=== PATIENT | female | born 1940 | race Two or more races ===

== ENCOUNTER 2024-07-29 13:51 | Inpatient (IN) | payer OTHER ==
[~2024-07-29] VITALS: Ht 157.5 cm; Wt 129.7 kg
[2024-07-29] MEDS ORDERED: LOSARTAN-HCTZ1 EACH PO (13:56)
[2024-07-29] MEDS ORDERED: QUETIAPINE FUM400 M1 PO (13:57)
[2024-07-29] MEDS ORDERED: CHILDREN'S ASPI81 MG PO (13:57)
[2024-07-29] MEDS ORDERED: TOPROL XL25 M1 PO (13:57)
--- NOTE | 2024-07-29 13:57 | NUR ---
PTE ALERTA Y DESORIENTADA EN AMBULANCIA. PARAMEDICOS REFIEREN TRAER PTE DE HOME YA QUE EN EL ADRIA SUFRIO CAIDA Y GOLPEARSE CADERA IZQUIERDA. ESTOS INDICAN PTE SER DE DR GARCIA
--- NOTE | 2024-07-29 14:53 | NUR ---
SE CANALIZA VENA Y SE VANESSA MUESTRAS DE LAB. PENDIENTE PLACA DE CADERA IZQUIERDA
[2024-07-29 15:19] LABS: INR < 0.93; PARTIAL THROMBOPLASTIN TIME 26.1 SECONDS (22.0-34.0); PROTHROMBIN TIME 10.2 SECONDS (9.0-11.5)
[2024-07-29 15:30] LABS: COVID-19 AG POSITIVE (NEGATIVE)
[2024-07-29 15:39] LABS: HEMATOCRIT 26.4 % (36.0-45.00); HEMOGLOBIN 9.1 g/dL (12.0-15.00); MEAN CELL VOLUME 93.9 fL (80.00-100.00); MEAN CORPUSCULAR HEMOGLOBIN 32.4 pg (27.00-32.0); MEAN CORPUSCULAR HGB CONC 34.5 g/dl (32.0-36.0); PLATELET COUNT 210 K/uL (150-450); RED BLOOD COUNT 2.81 M/uL (4.00-6.00); RED CELL DISTRIBUTION WIDTH 13.2 % (11.5-14.5)
--- NOTE | 2024-07-29 15:43 | NUR ---
SE INSERTA SUAREZ BAJO MEDIDAS ESTERIL SE OBSERVA RETORNO DE ORINA SIN HEMAMTURIA. SE EMMANUEL U/A
[2024-07-29 15:51] LABS: CALCIUM 8.6 mg/dL (8.5-10.1); CREATININE SERUM 0.8 mg/dL (0.55-1.02); GFR 68.5; POTASSIUM 3.85 mEq/L (3.5-5.1)
[2024-07-29 16:42] LABS: PH,URINE 5.5 (5.0-8.0); URINE APPEARANCE Cloudy; URINE BILIRRUBIN Negative (NEGATIVE); URINE BLOOD Negative; URINE COLOR Yellow; URINE GLUCOSE Negative (NEGATIVE); URINE KETONE Negative (NEGATIVE); URINE LEUKOCYTE Small; URINE NITRATE Negative; URINE PROTEIN Trace (NEGATIVE); URINE UROBILINOGEN 0.2 E.U./dl
[2024-07-29 16:46] LABS: URINE BACTERIA 9688.8 uL (0.0-1933); URINE CAST 1.61 uL (0.0-1.40); URINE EPITHELIAL CELLS 45.5 uL (0.0-38.8); URINE RBC 6.4 uL (0.0-20.8)
[2024-07-29] MEDS ORDERED: FUROsemide 20 MG/2 ML VIAL IV SCH (19:15)
[2024-07-29] MEDS ORDERED: ACETAMINOPHEN 500 MG GEL..CAP PO PRN (19:15)
[2024-07-29] MEDS ORDERED: 0.9 % SODIUM CHLORIDE 1,000 ML IV SCH (19:15)
[2024-07-30] VITALS: BP 133/64; O2SAT 96
[2024-07-30 08:55] VITALS: BP 143/62
[2024-07-30] MEDS ORDERED: FAMOTIDINE/PF 20 MG in 0.9 % SODIUM CHLORIDE 8 ML IV PUSH SCH (09:00)
[2024-07-30] MEDS ORDERED: IRON FUM,PS/FOLIC/BCOMP,C NO.9 1 CAP CAPSULE PO SCH (09:00)
[2024-07-30] MEDS ORDERED: CEFTRIAXONE SODIUM 2,000 MG in 0.9 % SODIUM CHLORIDE 100 ML IV SCH (09:00)
[2024-07-30] MEDS ORDERED: ENOXAPARIN SODIUM 40 MG/0.4 ML SYRINGE SUBCUTANEO SCH (09:00)
[2024-07-30] MEDS ORDERED: LOSARTAN/HYDROCHLOROTHIAZIDE 1 UDTAB TABLET PO SCH (09:00)
[2024-07-30] MEDS ORDERED: 0.9 % SODIUM CHLORIDE 1,000 ML IV SCH (09:00)
[2024-07-30] MEDS ORDERED: METOPROLOL SUCCINATE 25 MG TAB.SR.24H PO SCH (09:00)
[2024-07-30] MEDS ORDERED: LACTOBACILLUS ACIDOPHILUS 1 CAP CAP PO SCH (17:00)
[2024-07-30 17:47] VITALS: BP 156/74; O2SAT 96
[2024-07-31 02:18] VITALS: BP 149/67; O2SAT 95
[2024-07-31 07:55] LABS: C-REACTIVE PROTEIN 11.4 MG/DL (0.00-0.29); FERRITIN 392.8 NG/ML (8-252)
[2024-07-31 07:56] LABS: HEMATOCRIT 28.4 % (36.0-45.00); HEMOGLOBIN 9.9 g/dL (12.0-15.00); MEAN CELL VOLUME 88.3 fL (80.00-100.00); MEAN CORPUSCULAR HEMOGLOBIN 30.8 pg (27.00-32.0); MEAN CORPUSCULAR HGB CONC 34.8 g/dl (32.0-36.0); PLATELET COUNT 191 K/uL (150-450); RED BLOOD COUNT 3.22 M/uL (4.00-6.00); RED CELL DISTRIBUTION WIDTH 15.7 % (11.5-14.5)
[2024-07-31 18:08] VITALS: BP 137/66; O2SAT 100
[2024-08-01 03:50] VITALS: BP 134/55
[2024-08-01 09:10] VITALS: BP 171/67; O2SAT 98
[2024-08-01 10:53] LABS: HEMATOCRIT 34.2 % (36.0-45.00); HEMOGLOBIN 11.3 g/dL (12.0-15.00); MEAN CELL VOLUME 90.5 fL (80.00-100.00); MEAN CORPUSCULAR HEMOGLOBIN 29.9 pg (27.00-32.0); MEAN CORPUSCULAR HGB CONC 33.1 g/dl (32.0-36.0); PLATELET COUNT 201 K/uL (150-450); RED BLOOD COUNT 3.78 M/uL (4.00-6.00); RED CELL DISTRIBUTION WIDTH 15.9 % (11.5-14.5)
[2024-08-01] MEDS ORDERED: CHLORHEXIDINE GLUCONATE 120 ML BOTTLE TOP SCH (17:00)
[2024-08-01 17:54] VITALS: BP 121/68; O2SAT 100
[2024-08-02 03:43] VITALS: BP 143/71; O2SAT 97
[2024-08-02 06:30] LABS: HEMOGLOBIN 11.1 g/dL (12.0-15.00); MEAN CELL VOLUME 89.8 fL (80.00-100.00); MEAN CORPUSCULAR HEMOGLOBIN 30.1 pg (27.00-32.0); MEAN CORPUSCULAR HGB CONC 33.5 g/dl (32.0-36.0); PLATELET COUNT 234 K/uL (150-450); RED BLOOD COUNT 3.67 M/uL (4.00-6.00); RED CELL DISTRIBUTION WIDTH 15.5 % (11.5-14.5)
[2024-08-02 07:01] LABS: CREATININE SERUM 0.57 mg/dL (0.55-1.02); GFR 101.3; POTASSIUM 4.11 mEq/L (3.5-5.1)
[2024-08-02] MEDS ORDERED: SODIUM CL 0.9% 100 ML IV.SOLN IV ONE (08:13)
[2024-08-02 10:11] VITALS: BP 151/66; O2SAT 99
[2024-08-02] MEDS ORDERED: CEFAZOLIN SODIUM 1,000 MG VIAL IV NR (13:00)
[2024-08-02] MEDS ORDERED: TRANEXAMIC ACID 100MG/1ML (1000MG) AMPUL IV NR ×2 (13:00)
[2024-08-02] MEDS ORDERED: TRAMADOL HCL 50 MG TABLET PO PRN (18:30)
[2024-08-02] MEDS ORDERED: SODIUM CHLORIDE 0.45 % 1,000 ML IV SCH (18:30)
[2024-08-02] MEDS ORDERED: PANTOPRAZOLE SODIUM 40 MG TABLET.DR PO SCH (18:34)
[2024-08-02 22:14] VITALS: BP 133/76
[2024-08-03 01:33] VITALS: BP 143/73; O2SAT 98
[2024-08-03 08:57] LABS: HEMATOCRIT 30.5 % (36.0-45.00); HEMOGLOBIN 10.2 g/dL (12.0-15.00); MEAN CELL VOLUME 90.3 fL (80.00-100.00); MEAN CORPUSCULAR HEMOGLOBIN 30.1 pg (27.00-32.0); MEAN CORPUSCULAR HGB CONC 33.3 g/dl (32.0-36.0); PLATELET COUNT 315 K/uL (150-450); RED BLOOD COUNT 3.38 M/uL (4.00-6.00); RED CELL DISTRIBUTION WIDTH 15.3 % (11.5-14.5)
[2024-08-03] MEDS ORDERED: SODIUM CL 0.9% 100 ML IV.SOLN IV ONE (09:10)
[2024-08-03 09:16] VITALS: BP 136/60; O2SAT 100
[2024-08-03 09:30] LABS: CALCIUM 8.1 mg/dL (8.5-10.1); CREATININE SERUM 0.46 mg/dL (0.55-1.02); GFR 129.73; POTASSIUM 4.09 mEq/L (3.5-5.1)
[2024-08-03 16:57] VITALS: BP 104/48; O2SAT 94
[2024-08-03] MEDS ORDERED: FAMOtidine 20 MG TABLET PO SCH (21:00)
[2024-08-04 02:53] VITALS: BP 135/70; O2SAT 99
[2024-08-04 06:55] LABS: HEMATOCRIT 28.4 % (36.0-45.00); MEAN CELL VOLUME 88.8 fL (80.00-100.00); MEAN CORPUSCULAR HGB CONC 33.7 g/dl (32.0-36.0); PLATELET COUNT 366 K/uL (150-450); RED CELL DISTRIBUTION WIDTH 15.4 % (11.5-14.5)
[2024-08-04 06:57] LABS: HEMOGLOBIN 9.6 g/dL (12.0-15.00)
[2024-08-04] MEDS ORDERED: RIVAROXABAN 10 MG TAB PO SCH (09:00)
[2024-08-04 10:01] VITALS: BP 158/68
[2024-08-04 18:01] VITALS: BP 127/60; O2SAT 98
[2024-08-05] MEDS ORDERED: ELIQUIS2.5 MG PO (15:53)
== END 2024-08-04 20:43 | disposition home or self-care (01) | DRG 480 ==
LOC: ER 13:51 → MEDJ 22:08 → MEDI 22:08 → MEDJ 07-30 13:35
PROVIDERS: Emergency Medicine; Internal Medicine; Internal Medicine Infectious Disease; Orthopaedic Surgery; ADMIT Student in an Organized Health Care Education/Training Program; ATTEND Student in an Organized Health Care Education/Training Program
PROC: BW28ZZZ Computerized Tomography (CT Scan) of Head (ICD-10-PCS; 2024-07-29)
PROC: BW2FZZZ Computerized Tomography (CT Scan) of Neck (ICD-10-PCS; 2024-07-29)
PROC: 8E0ZXY6 Isolation (ICD-10-PCS; 2024-07-30)
PROC: 30233N1 Transfusion of Nonautologous Red Blood Cells into Peripheral Vein, Percutaneous Approach (ICD-10-PCS; 2024-07-30)
PROC: 0MBB0ZZ Excision of Left Upper Extremity Bursa and Ligament, Open Approach (ICD-10-PCS; 2024-08-02)
PROC: 0QS706Z Reposition Left Upper Femur with Intramedullary Internal Fixation Device, Open Approach (ICD-10-PCS; principal; 2024-08-02 14:30)
DX: S72.142A Displaced intertrochanteric fracture of left femur, initial encounter for closed fracture (principal); U07.1 COVID-19; N39.0 Urinary tract infection, site not specified; W13.3XXA Fall through floor, initial encounter; Y93.9 Activity, unspecified; Y92.9 Unspecified place or not applicable; M70.62 Trochanteric bursitis, left hip; I10 Essential (primary) hypertension; G30.9 Alzheimer's disease, unspecified; F02.80 Dementia in other diseases classified elsewhere, unspecified severity, without behavioral disturbance, psychotic disturbance, mood disturbance, and anxiety; D64.9 Anemia, unspecified

== ENCOUNTER 2024-09-24 19:09 | Inpatient (IN) | payer OTHER ==
[~2024-09-24] VITALS: Ht 160 cm; Wt 45.4 kg
[~2024-09-24 19:09] MED LIST: CHILDREN'S ASPI81 MG PO; ELIQUIS2.5 MG PO; LOSARTAN-HCTZ1 EACH PO; QUETIAPINE FUM400 M1 PO; TOPROL XL25 M1 PO
--- NOTE | 2024-09-24 19:13 | NUR ---
SE RECIBE PTE ALERTA EN AMBULANCIA CON H/L [place]. PERSONAL PARAMEDICO REFIERE TRAER A PTE POR ULCERA SACRAL. PERSONAL PARAMEDICO REFIERE QUE PTE FUE OPERADA POR DR. MCKEON RECIENTEMENTE. SE MIDEN S/V A PTE Y SE UBICA.
[2024-09-24] MEDS ORDERED: 0.9 % SODIUM CHLORIDE 1,000 ML IV SCH (19:45)
[2024-09-24] MEDS ORDERED: PIPERACILLIN/TAZOBACTAM SODIUM 2.25 GM VIAL IV ONE (19:45)
[2024-09-24] MEDS ORDERED: PIPERACILLIN/TAZOBACTAM SODIUM 3.375 GM VIAL IV ONE (20:03)
--- NOTE | 2024-09-24 20:45 | NUR ---
MANJULA EDUCA A CUIDADORA SOBRE [place] MEDICO, SE VANESSA MUESTRAS DE LABORATORIO UTILIZANDO MEDIDAS ASEPTICAS. SE COLOCA H/L AMIRA DE EDEMA. SE NOTIFICAN RX PENDIENTE. SE ADMINISTRAN MEDCIAMENTO AMAN ORDEN MEDICA.
[2024-09-24 20:57] LABS: BASO % 0.4 % (0.1-1.2); EOS % 0.9 % (0.7-7.0); HEMATOCRIT 28.6 % (34.1-44.9); HEMOGLOBIN 9.5 g/dL (11.2-15.7); LYMPH # 1.27 (1.18-3.74); LYMPH % 11.1 % (19.3-53.1); MEAN CORPUSCULAR HEMOGLOBIN 29.3 pg (25.6-32.2); MONO # 1.39 (0.24-0.82); NEUT # 8.43 (1.56-6.13); NEUT % 73.9 % (34.0-71.1); RED BLOOD COUNT 3.24 M/uL (3.93-5.22); RED CELL DISTRIBUTION WIDTH 14.4 % (11.6-14.4)
[2024-09-24 21:17] LABS: ERYTHROCYTE SEDIMENTATION RATE 58 mm/hr (0-30); MONO % 12.2 % (4.7-12.5); PLATELET COUNT 561 K/uL (163-369)
[2024-09-24 21:19] LABS: PARTIAL THROMBOPLASTIN TIME 20.5 SECONDS (22.0-34.0); PROTHROMBIN TIME 10.9 SECONDS (9.0-11.5)
[2024-09-24 21:26] LABS: PH,URINE 6.5 (5.0-8.0); URINE APPEARANCE Clear; URINE BILIRRUBIN Negative (NEGATIVE); URINE BLOOD NHT; URINE COLOR Yellow; URINE GLUCOSE Negative (NEGATIVE); URINE KETONE Negative (NEGATIVE); URINE LEUKOCYTE Small; URINE NITRATE Negative; URINE PROTEIN Negative (NEGATIVE)
[2024-09-24 21:28] LABS: COVID-19 AG NEGATIVE (NEGATIVE)
[2024-09-24 21:30] LABS: URINE EPITHELIAL CELLS 13.2 uL (0.0-38.8); URINE RBC 26.2 uL (0.0-20.8); URINE WBC 65.2 uL (0.0-23.2)
[2024-09-24 21:31] LABS: URINE BACTERIA > 9821.5 uL (0.0-1933); URINE CAST 0.44 uL (0.0-1.40)
[2024-09-24 21:33] LABS: ALBUMIN 2.2 gm/dL (3.4-5.0); BILIRUBIN TOTAL 0.12 mg/dL (0.3-1.2); CALCIUM 8.4 mg/dL (8.5-10.1); CREATININE SERUM 0.64 mg/dL (0.55-1.02); GFR 88.62; GLOBULINA 4.4 G/DL (2.4-3.5); POTASSIUM 4.64 mEq/L (3.5-5.1); TOTAL PROTEIN 6.6 gm/dL (6.4-8.2)
[2024-09-24 21:34] LABS: C-REACTIVE PROTEIN 0.9 MG/DL (0.00-0.29)
[2024-09-25] MEDS ORDERED: MEROPENEM 500 MG/VIAL VIAL IV SCH (01:00)
[2024-09-25] MEDS ORDERED: PIPERACILLIN/TAZOBACTAM SODIUM 3.375 GM in 0.9 % SODIUM CHLORIDE 100 ML IV SCH (06:00)
[2024-09-25 06:46] VITALS: BP 119/68; O2SAT 95
[2024-09-25] MEDS ORDERED: ASPIRIN 81 MG TABLET.EC PO SCH (09:00)
[2024-09-25] MEDS ORDERED: LOSARTAN/HYDROCHLOROTHIAZIDE 1 UDTAB TABLET PO SCH (09:00)
[2024-09-25] MEDS ORDERED: METOPROLOL SUCCINATE 25 MG TAB.SR.24H PO SCH (09:00)
[2024-09-25 10:13] VITALS: BP 129/52; O2SAT 97
[2024-09-25] MEDS ORDERED: QUETIAPINE FUMARATE 25 MG TABLET PO SCH (21:00)
[2024-09-25] MEDS ORDERED: PANTOPRAZOLE SODIUM 40 MG/VIAL VIAL IV SCH (21:00)
[2024-09-26 01:23] VITALS: BP 156/71; O2SAT 95
[2024-09-26 09:59] VITALS: BP 148/67; O2SAT 97
[2024-09-26 18:19] VITALS: BP 116/51; O2SAT 96
[2024-09-27 00:28] VITALS: BP 106/55; O2SAT 92
[2024-09-27 08:34] VITALS: BP 118/50
[2024-09-27] MEDS ORDERED: MEROPENEM 500 MG/VIAL VIAL IV NR (11:00)
[2024-09-27] MEDS ORDERED: MEROPENEM 500 MG/VIAL VIAL IV SCH (17:00)
[2024-09-27 18:25] VITALS: BP 110/61
[2024-09-27 21:46] LABS: BASO % 0.4 % (0.1-1.2); EOS # 0.05 (0.04-0.54); EOS % 0.4 % (0.7-7.0); HEMATOCRIT 27.3 % (34.1-44.9); HEMOGLOBIN 9.3 g/dL (11.2-15.7); LYMPH # 0.99 (1.18-3.74); LYMPH % 7.9 % (19.3-53.1); MONO # 1.32 (0.24-0.82); MONO % 10.5 % (4.7-12.5); NEUT # 9.76 (1.56-6.13); NEUT % 77.5 % (34.0-71.1); PLATELET COUNT 457 K/uL (163-369); RED CELL DISTRIBUTION WIDTH 14.6 % (11.6-14.4)
[2024-09-27 22:07] LABS: CALCIUM 8.3 mg/dL (8.5-10.1); CREATININE SERUM 0.36 mg/dL (0.55-1.02); GFR 172.15; POTASSIUM 3.66 mEq/L (3.5-5.1)
[2024-09-28 00:45] VITALS: BP 121/54; O2SAT 99
[2024-09-28 08:40] VITALS: BP 117/63; O2SAT 97
[2024-09-28] MEDS ORDERED: LACTOBACILLUS ACIDOPHILUS 1 CAP CAP PO SCH (17:00)
[2024-09-28] MEDS ORDERED: DEXTROSE 5% IV SCH (17:00)
[2024-09-28] MEDS ORDERED: WATER IV SCH (17:00)
[2024-09-28] MEDS ORDERED: AMPICILLIN SODIUM IV SCH (17:00)
[2024-09-28 17:35] VITALS: BP 98/51
[2024-09-29 00:27] VITALS: BP 91/49; O2SAT 97
[2024-09-29 08:25] VITALS: BP 87/40; O2SAT 95
[2024-09-29] MEDS ORDERED: LANSOPRAZOLE 30 MG CAPSULE NGT SCH (09:00)
[2024-09-29 10:00] VITALS: BP 107/53
[2024-09-29] MEDS ORDERED: CHLORHEXIDINE GLUCONATE 120 ML BOTTLE TOP SCH (17:00)
[2024-09-29 17:22] VITALS: BP 100/46
[2024-09-29 18:42] LABS: PH,URINE 6.5 (5.0-8.0); URINE APPEARANCE Clear; URINE BILIRRUBIN Negative (NEGATIVE); URINE BLOOD Negative; URINE COLOR Yellow; URINE GLUCOSE Negative (NEGATIVE); URINE KETONE Negative (NEGATIVE); URINE LEUKOCYTE Trace; URINE NITRATE Negative; URINE PROTEIN Trace (NEGATIVE)
[2024-09-29 18:43] LABS: URINE BACTERIA 124.8 uL (0.0-1933); URINE EPITHELIAL CELLS 9.6 uL (0.0-38.8); URINE RBC 15.3 uL (0.0-20.8)
[2024-09-29 18:44] LABS: URINE CAST 1.17 uL (0.0-1.40)
[2024-09-30 01:42] VITALS: BP 93/51
[2024-09-30 09:17] VITALS: BP 123/60; O2SAT 98
[2024-09-30 09:52] LABS: BASO % 0.6 % (0.1-1.2); EOS # 0.12 (0.04-0.54); EOS % 1.7 % (0.7-7.0); LYMPH # 1.11 (1.18-3.74); LYMPH % 15.6 % (19.3-53.1); MEAN CORPUSCULAR HEMOGLOBIN 29.7 pg (25.6-32.2); MONO # 0.96 (0.24-0.82); NEUT # 4.19 (1.56-6.13); NEUT % 58.9 % (34.0-71.1); PLATELET COUNT 364 K/uL (163-369); RED BLOOD COUNT 2.86 M/uL (3.93-5.22); RED CELL DISTRIBUTION WIDTH 14.6 % (11.6-14.4)
[2024-09-30 11:05] LABS: HEMATOCRIT 25.4 % (34.1-44.9); HEMOGLOBIN 8.5 g/dL (11.2-15.7); MONO % 13.5 % (4.7-12.5)
[2024-09-30 11:17] LABS: ALBUMIN 1.7 gm/dL (3.4-5.0); BILIRUBIN TOTAL 0.15 mg/dL (0.3-1.2); CALCIUM 7.7 mg/dL (8.5-10.1); GFR 239.92; GLOBULINA 3.6 G/DL (2.4-3.5); POTASSIUM 4.83 mEq/L (3.5-5.1); TOTAL PROTEIN 5.3 gm/dL (6.4-8.2)
[2024-09-30 11:18] LABS: CREATININE SERUM 0.27 mg/dL (0.55-1.02)
[2024-09-30 17:04] VITALS: BP 133/77; O2SAT 97
[2024-10-01 02:59] VITALS: BP 86/51
[2024-10-01 09:49] VITALS: BP 109/50; O2SAT 99
[2024-10-01 18:35] VITALS: BP 125/52
[2024-10-02 02:19] VITALS: BP 118/60; O2SAT 96
[2024-10-02 09:21] VITALS: BP 125/56; O2SAT 98
[2024-10-02 18:29] VITALS: BP 150/69
[2024-10-03 02:42] VITALS: BP 144/69; O2SAT 95
[2024-10-03 10:05] VITALS: BP 137/73
[2024-10-03 17:38] VITALS: BP 142/63
[2024-10-04 01:50] VITALS: BP 138/76; O2SAT 94
[2024-10-04 08:24] VITALS: BP 146/70; O2SAT 97
[2024-10-04 15:28] LABS: COVID-19 AG NEGATIVE (NEGATIVE)
[2024-10-04 16:19] LABS: INFLUENZA A AG POSITIVE (NEGATIVE); INFLUENZA B AG NEGATIVE (NEGATIVE)
[2024-10-04] MEDS ORDERED: OSELTAMIVIR PHOSPHATE 75 MG CAPSULE PO SCH (17:00)
[2024-10-04 17:03] VITALS: BP 148/65
[2024-10-04 19:12] LABS: BASO % 0.9 % (0.1-1.2); HEMATOCRIT 27.8 % (34.1-44.9); HEMOGLOBIN 9.4 g/dL (11.2-15.7); LYMPH # 0.87 (1.18-3.74); MEAN CORPUSCULAR HEMOGLOBIN 28.6 pg (25.6-32.2); MONO # 1.11 (0.24-0.82); NEUT # 2.04 (1.56-6.13); NEUT % 44.5 % (34.0-71.1); PLATELET COUNT 286 K/uL (163-369); RED BLOOD COUNT 3.29 M/uL (3.93-5.22)
[2024-10-04 19:33] LABS: ALBUMIN 1.8 gm/dL (3.4-5.0); BILIRUBIN TOTAL 0.23 mg/dL (0.3-1.2); CALCIUM 7.6 mg/dL (8.5-10.1); GFR 230.07; GLOBULINA 3.6 G/DL (2.4-3.5); POTASSIUM 4.07 mEq/L (3.5-5.1); TOTAL PROTEIN 5.4 gm/dL (6.4-8.2)
[2024-10-04 19:35] LABS: CREATININE SERUM 0.28 mg/dL (0.55-1.02)
[2024-10-04 20:23] LABS: MONO % 24.2 % (4.7-12.5)
[2024-10-05 01:12] VITALS: BP 105/61; O2SAT 98
[2024-10-05 08:20] VITALS: BP 117/66; O2SAT 95
[2024-10-05 17:48] VITALS: BP 116/56; O2SAT 96
[2024-10-06 02:59] VITALS: BP 100/51; O2SAT 91
[2024-10-06 08:15] LABS: BASO % 0.2 % (0.1-1.2); EOS # 0.01 (0.04-0.54); EOS % 0.2 % (0.7-7.0); LYMPH % 28.6 % (19.3-53.1); MONO # 0.86 (0.24-0.82); NEUT # 1.73 (1.56-6.13); NEUT % 41.4 % (34.0-71.1); PLATELET COUNT 245 K/uL (163-369); RED BLOOD COUNT 3.03 M/uL (3.93-5.22); RED CELL DISTRIBUTION WIDTH 14.4 % (11.6-14.4)
[2024-10-06 08:42] LABS: CALCIUM 6.9 mg/dL (8.5-10.1); CREATININE SERUM 0.3 mg/dL (0.55-1.02); GFR 212.45; POTASSIUM 4.87 mEq/L (3.5-5.1)
[2024-10-06 08:59] LABS: HEMOGLOBIN 8.8 g/dL (11.2-15.7); MONO % 20.5 % (4.7-12.5)
[2024-10-06 09:27] VITALS: BP 104/60; O2SAT 96
[2024-10-06] MEDS ORDERED: METROnidazole 500 MG TABLET PO SCH (17:00)
[2024-10-06] MEDS ORDERED: CEFTAZIDIME/AVIBACTAM 2.5 GM VIAL IV SCH (17:00)
[2024-10-06 17:22] VITALS: BP 133/74; O2SAT 99
[2024-10-07 02:28] VITALS: BP 105/62; O2SAT 90
[2024-10-07 09:14] VITALS: BP 115/50
[2024-10-07 18:01] VITALS: BP 116/60; O2SAT 97
[2024-10-08 02:59] VITALS: BP 90/50; O2SAT 90
[2024-10-08 06:59] LABS: CALCIUM 6.8 mg/dL (8.5-10.1); CREATININE SERUM 0.3 mg/dL (0.55-1.02); GFR 212.45; POTASSIUM 4.54 mEq/L (3.5-5.1)
[2024-10-08 07:10] LABS: BASO % 0.4 % (0.1-1.2); EOS # 0.01 (0.04-0.54); EOS % 0.2 % (0.7-7.0); LYMPH # 1.36 (1.18-3.74); LYMPH % 24.1 % (19.3-53.1); MEAN CORPUSCULAR HEMOGLOBIN 28.7 pg (25.6-32.2); MONO # 1.17 (0.24-0.82); NEUT # 3.01 (1.56-6.13); NEUT % 53.2 % (34.0-71.1); PLATELET COUNT 215 K/uL (163-369); RED BLOOD COUNT 2.72 M/uL (3.93-5.22); RED CELL DISTRIBUTION WIDTH 14.6 % (11.6-14.4)
[2024-10-08 08:53] LABS: MONO % 20.7 % (4.7-12.5)
[2024-10-08 08:57] LABS: HEMOGLOBIN 7.8 g/dL (11.2-15.7)
[2024-10-08 09:25] VITALS: BP 104/48; O2SAT 95
[2024-10-08 17:29] VITALS: BP 160/66; O2SAT 92
[2024-10-09 02:27] VITALS: BP 124/60; O2SAT 89
[2024-10-09 09:16] VITALS: BP 118/60; O2SAT 96
[2024-10-09 12:09] LABS: BASO % 0.5 % (0.1-1.2); EOS # 0.08 (0.04-0.54); HEMOGLOBIN 11.8 g/dL (11.2-15.7); LYMPH % 17.3 % (19.3-53.1); MEAN CORPUSCULAR HEMOGLOBIN 28.5 pg (25.6-32.2); MONO # 1.49 (0.24-0.82); NEUT # 5.02 (1.56-6.13); NEUT % 62.2 % (34.0-71.1); PLATELET COUNT 246 K/uL (163-369); RED BLOOD COUNT 4.14 M/uL (3.93-5.22); RED CELL DISTRIBUTION WIDTH 15.2 % (11.6-14.4)
[2024-10-09 12:11] LABS: MONO % 18.4 % (4.7-12.5)
[2024-10-09 17:45] VITALS: BP 132/57; O2SAT 91
[2024-10-10 00:45] VITALS: BP 121/61
[2024-10-10] MEDS ORDERED: LEVALBUTEROL HCL 1.25 MG/3 ML SOLUTION IH SCH (09:16)
[2024-10-10] MEDS ORDERED: IPRATROPIUM BROMIDE 0.5 MG/2.5 ML AMPUL.NEB IH SCH (09:17)
[2024-10-10 10:21] VITALS: BP 159/74; O2SAT 86
[2024-10-10 17:58] VITALS: BP 153/66; O2SAT 90
[2024-10-11 00:49] VITALS: BP 124/66; O2SAT 96
[2024-10-11 09:02] VITALS: BP 116/58; O2SAT 96
[2024-10-11 09:02] LABS: BASO % 0.3 % (0.1-1.2); EOS # 0.13 (0.04-0.54); EOS % 1.3 % (0.7-7.0); HEMATOCRIT 29.7 % (34.1-44.9); HEMOGLOBIN 10.1 g/dL (11.2-15.7); LYMPH # 1.01 (1.18-3.74); MEAN CORPUSCULAR HEMOGLOBIN 28.5 pg (25.6-32.2); MONO # 2.38 (0.24-0.82); NEUT # 6.36 (1.56-6.13); NEUT % 63.1 % (34.0-71.1); PLATELET COUNT 404 K/uL (163-369); RED BLOOD COUNT 3.55 M/uL (3.93-5.22); RED CELL DISTRIBUTION WIDTH 15.3 % (11.6-14.4)
[2024-10-11 09:32] LABS: ALBUMIN 1.2 gm/dL (3.4-5.0); BILIRUBIN TOTAL 0.23 mg/dL (0.3-1.2); CALCIUM 7.5 mg/dL (8.5-10.1); GFR 230.07; GLOBULINA 3.8 G/DL (2.4-3.5); POTASSIUM 4.49 mEq/L (3.5-5.1)
[2024-10-11 09:34] LABS: CREATININE SERUM 0.28 mg/dL (0.55-1.02)
[2024-10-11 09:49] LABS: MONO % 23.6 % (4.7-12.5)
[2024-10-11 16:06] VITALS: BP 154/69; O2SAT 97
[2024-10-12 02:40] VITALS: BP 116/65; O2SAT 99
[2024-10-12 05:07] LABS: BASO % 0.6 % (0.1-1.2); EOS # 0.31 (0.04-0.54); EOS % 3.8 % (0.7-7.0); HEMATOCRIT 28.7 % (34.1-44.9); LYMPH # 0.78 (1.18-3.74); LYMPH % 9.5 % (19.3-53.1); MEAN CORPUSCULAR HEMOGLOBIN 28.2 pg (25.6-32.2); MONO # 1.87 (0.24-0.82); NEUT # 5.09 (1.56-6.13); NEUT % 62.1 % (34.0-71.1); PLATELET COUNT 462 K/uL (163-369); RED BLOOD COUNT 3.44 M/uL (3.93-5.22); RED CELL DISTRIBUTION WIDTH 15.3 % (11.6-14.4)
[2024-10-12 05:22] LABS: HEMOGLOBIN 9.7 g/dL (11.2-15.7); MONO % 22.8 % (4.7-12.5)
[2024-10-12 05:35] LABS: ALBUMIN 1.2 gm/dL (3.4-5.0); BILIRUBIN TOTAL 0.29 mg/dL (0.3-1.2); CALCIUM 7.6 mg/dL (8.5-10.1); GFR 359.91; GLOBULINA 3.6 G/DL (2.4-3.5); POTASSIUM 4.43 mEq/L (3.5-5.1); TOTAL PROTEIN 4.8 gm/dL (6.4-8.2)
[2024-10-12 05:46] LABS: CREATININE SERUM 0.19 mg/dL (0.55-1.02)
[2024-10-12 08:47] VITALS: BP 107/50; O2SAT 96
[2024-10-12 17:48] VITALS: BP 152/80
[2024-10-13 02:11] VITALS: BP 133/70; O2SAT 98
[2024-10-13 09:06] VITALS: BP 160/79; O2SAT 100
[2024-10-13 17:43] VITALS: BP 142/77
[2024-10-14 02:31] VITALS: BP 134/69; O2SAT 95
[2024-10-14 08:38] VITALS: BP 133/70; O2SAT 98
== END 2024-10-14 13:12 | disposition home or self-care (01) | DRG 580 ==
LOC: ER 19:09 → MEDJ 22:06
PROVIDERS: General Practice; Internal Medicine Infectious Disease; ADMIT Student in an Organized Health Care Education/Training Program; ATTEND Student in an Organized Health Care Education/Training Program
PROC: 8E0ZXY6 Isolation (ICD-10-PCS; 2024-09-24)
PROC: 0JB70ZX Excision of Back Subcutaneous Tissue and Fascia, Open Approach, Diagnostic (ICD-10-PCS; 2024-09-27)
PROC: C710YZZ Planar Nuclear Medicine Imaging of Bone Marrow using Other Radionuclide (ICD-10-PCS; 2024-09-27)
PROC: 0JD70ZZ Extraction of Back Subcutaneous Tissue and Fascia, Open Approach (ICD-10-PCS; principal; 2024-10-05)
PROC: 30233N1 Transfusion of Nonautologous Red Blood Cells into Peripheral Vein, Percutaneous Approach (ICD-10-PCS; 2024-10-08)
DX: L89.154 Pressure ulcer of sacral region, stage 4 (principal); E46 Unspecified protein-calorie malnutrition; F02.818 Dementia in other diseases classified elsewhere, unspecified severity, with other behavioral disturbance; N39.0 Urinary tract infection, site not specified; Z16.12 Extended spectrum beta lactamase (ESBL) resistance; Z16.24 Resistance to multiple antibiotics; L08.9 Local infection of the skin and subcutaneous tissue, unspecified; B95.2 Enterococcus as the cause of diseases classified elsewhere; B96.89 Other specified bacterial agents as the cause of diseases classified elsewhere; I10 Essential (primary) hypertension; G30.9 Alzheimer's disease, unspecified; R13.19 Other dysphagia; B96.20 Unspecified Escherichia coli [E. coli] as the cause of diseases classified elsewhere; B96.4 Proteus (mirabilis) (morganii) as the cause of diseases classified elsewhere; B96.5 Pseudomonas (aeruginosa) (mallei) (pseudomallei) as the cause of diseases classified elsewhere; D64.9 Anemia, unspecified; J10.1 Influenza due to other identified influenza virus with other respiratory manifestations